=== PATIENT | male | born 1945 | race Caucasian/White ===

== ENCOUNTER 2025-06-24 23:15 | Emergency (ER) | payer OTHER ==
[~2025-06-24] VITALS: Ht 185.4 cm; Wt 96.0 kg
[2025-06-24 23:19] VITALS: O2SAT 96
[2025-06-25 01:56] LABS: BASOPHILS % 0.8 % (0.0-2.0); EOSINOPHILS % 0.7 % (0.0-5.0); HEMATOCRIT. 45.9 % (42.0-52.0); HEMOGLOBIN. 15.6 g/dL (14.0-18.0); LYMPHOCYTES % 12.6 % (20.0-50.0); MEAN PLATELET VOLUME 8.8 fl (7.4-10.4); MONOCYTES % 8.8 % (2.0-8.0); NEUTROPHILS % 77.1 % (40.0-76.0); PLATELET 215 x1000/uL (130-400); RED BLOOD CELL COUNT 5.00 mill/uL (4.7-6.1); RED CELL DISTRIBUTION WIDTH 14.3 % (11.6-14.6)
[2025-06-25 02:14] LABS: CREATININE 2.1 mg/dL (0.6-1.3); TROPONIN I HIGH SENSITIVITY 24 ng/L (3.0-53); UREA NITROGEN BLOOD 24 mg/dL (9-23)
[2025-06-25 02:16] LABS: ASPARTATE AMINOTRANSFERASE 13 IU/L (<34); BILIRUBIN DIRECT 0.2 mg/dL (<=3.0)
[2025-06-25 02:17] LABS: BILIRUBIN TOTAL 0.8 mg/dL (0.1-1.0); PROTEIN TOTAL 6.8 g/dL (6.0-8.3)
[2025-06-25 02:21] LABS: CLARITY URINE CLEAR (CLEAR); COLOR URINE YELLOW (YELLOW); GLUCOSE URINE 2+ (NEGATIVE); KETONES URINE 1+ (NEGATIVE); LEUKOCYTE ESTERASE URINE NEGATIVE (NEGATIVE); NITRITE URINE NEGATIVE (NEGATIVE); OCCULT BLOOD URINE 2+ (NEGATIVE); PH URINE 6.0 (4.5-8.0); PROTEIN URINE 4+ (NEGATIVE); SPECIFIC GRAVITY URINE 1.026 (1.005-1.030); UROBILINOGEN URINE 1.0 E.U./dL (0.2-1.0)
[2025-06-25] MEDS: SODIUM CHLORIDE 0.9% 1,000 ML IV ONE (03:54)
[2025-06-25 04:50] LABS: SQUAMOUS EPITHELIAL CELL URINE NONE SEEN /lpf (RARE/1+); WBC URINE 0-2 /hpf (0-2)
[2025-06-25 04:51] LABS: RBC URINE 0-2 /hpf (0-2)
[2025-06-25 04:52] LABS: BACTERIA URINE TRACE
[2025-06-25 05:59] VITALS: BP 180/99; PULSE 68; RESP 16; TEMP 37.1; O2SAT 96
== END 2025-06-25 06:20 | disposition short-term general hospital (02) ==
LOC: ER 23:15 → CMPBEDREQ 06-25 07:35
DX: R41.82 Altered mental status, unspecified (principal); I10 Essential (primary) hypertension; E11.9 Type 2 diabetes mellitus without complications; I48.91 Unspecified atrial fibrillation; N17.9 Acute kidney failure, unspecified; Z79.899 Other long term (current) drug therapy
CPT/HCPCS: 99285; 70450; 71045; 82962; 36415; 96360; 80076; 80048; 81003; 82140; 83735; 85025; 84484; J7030